=== PATIENT | female | born 1960 | race Caucasian/White ===

== ENCOUNTER → 2020-11-19 18:22 | Outpatient (CLI) | payer MEDICAID ==
[2013-02-02 17:57] VITALS: BMI 53.2
[~2020-11-19 18:22] MED LIST: CATAPRES0.2 MG PO; COREG12.5 MG PO; DESERYL100 MG PO; DIABETA5 MG PO; DUONEB 2.5-0.5 M3 ML UPD; FLEXERIL10 MG PO; GLUCOTROL 5 MG T5 MG PO; ISOPTIN SR240 MG PO; KLONOPIN1 MG PO; LAMICTAL100 MG PO; LASIX20 MG PO; LEVAQUIN750 MG PO; NEURONTIN800 MG PO; PULMICORT0.5 MG/21 UPD; ZANTAC150 MG PO; ZOLOFT100 MG PO
== END | disposition home or self-care (01) ==
LOC: D.LABREF 18:22
PROVIDERS: ATTEND Family Medicine
DX: E11.42 Type 2 diabetes mellitus with diabetic polyneuropathy (principal)

== ENCOUNTER → 2020-12-25 16:43 | Outpatient (CLI) | payer MEDICAID ==
[2013-02-02 17:57] VITALS: BMI 53.2
[2020-12-25 17:05] LABS: BASOPHILS 0.8 % (0-2); EOSINOPHILS 0.9 % (0-7); HEMOGLOBIN 13.4 g/dL (12-16); LYMPHOCYTES 33.9 % (15-50); MCH 28.5 pg (26.0-34.0); MCHC 32.6 g/dL (31.0-37.0); MCV 87.5 fL (80.0-100.0); MEAN PLATELET VOLUME 8.6 fL (7.4-10.4); MONOCYTES 6.5 % (2-11); NEUTROPHILS 57.9 % (40-80); PLATELET COUNT 146 10x3/uL (130-400); RBC 4.68 10x6/uL (4.00-5.40); RDW 14.4 % (11.5-14.5); WBC 7.6 10x3/uL (4.8-10.8)
[2020-12-25 17:21] LABS: ALBUMIN 3.2 g/dL (3.4-5.0); ANION GAP 6.7 mmol/L (8-16); BILIRUBIN - TOTAL 0.3 mg/dL (0.2-1.3); CALCIUM 8.1 mg/dL (8.5-10.1); CARBON DIOXIDE 38.7 mmol/L (21.0-32.0); CREATININE - SERUM 1.2 mg/dL (0.6-1.3); POTASSIUM - SERUM 4.4 mmol/L (3.5-5.1); PROTEIN - SERUM 7.3 g/dL (6.4-8.2)
== END | disposition home or self-care (01) ==
LOC: D.LABREF 16:43
PROVIDERS: ATTEND Family Medicine
DX: R41.82 Altered mental status, unspecified (principal)

== ENCOUNTER → 2020-12-26 14:41 | Outpatient (CLI) | payer MEDICAID ==
[2013-02-02 17:57] VITALS: BMI 53.2
[2020-12-26 15:19] LABS: BACTERIA FEW HPF (<MOD); BILIRUBIN NEGATIVE (NEGATIVE); KETONE NEGATIVE mg/dL (< 1+); NITRITE NEGATIVE (NEGATIVE); SQUAMOUS EPITHELIAL 2 HPF (0-4); UROBILINOGEN 2 mg/dL (< 2); WHITE CELLS - URINE 14 HPF (0-4)
== END | disposition home or self-care (01) ==
LOC: D.LABREF 14:41
PROVIDERS: ATTEND Family Medicine
DX: R41.82 Altered mental status, unspecified (principal)